=== PATIENT | female | born 1985 | race Caucasian/White ===

== ENCOUNTER 2024-10-20 23:19 | Emergency (ER) | payer SELFPAY ==
[~2024-10-20] VITALS: Ht 160 cm; Wt 52.0 kg
[2024-10-21] MEDS ORDERED: LIDOCAINE/RACEPINEP/TETRACAINE 3 ML SYR TOP ONE (01:45)
[2024-10-21 02:38] VITALS: BP 114/71
== END 2024-10-21 02:39 | disposition home or self-care (01) ==
LOC: ED 23:19
DX: S71.111A Laceration without foreign body, right thigh, initial encounter (principal); X58.XXXA Exposure to other specified factors, initial encounter
CPT/HCPCS: 12004; 99282